=== PATIENT | female | born 1970 | race Caucasian/White ===

== ENCOUNTER 2024-01-06 04:14 | Day surgery (SDC) | payer OTHER ==
[2024-01-05 11:20] VITALS: BMI 25.1
[2024-01-06] MEDS ORDERED: KETOROLAC TROMETHAMINE 30 MG/1 ML VIAL ONE (09:29)
[2024-01-06] MEDS ORDERED: ONDANSETRON 4 MG/2 ML VIAL ONE (09:29)
[2024-01-06] MEDS ORDERED: MIDAZOLAM HCL 2 MG/2 ML SINGLE DOSE VIAL ONE (09:29)
[2024-01-06] MEDS: ceFAZolin 2 GRAM PREMIX BAG IVPB ONE (10:30)
[2024-01-06] MEDS ORDERED: ceFAZolin SODIUM 1 GM VIAL ONE (10:30)
[2024-01-06] MEDS ORDERED: ELECTROLYTE-148 SOLN 1,000 ML IV SCH (11:15)
[2024-01-06 11:18] VITALS: RESP 20
[2024-01-06 13:19] VITALS: BP 137/70; PULSE 68; TEMP 97
== END 2024-01-06 12:15 | disposition home or self-care (01) ==
LOC: JASU-SURG 04:14
PROVIDERS: ATTEND Urology
PROC: 0TF4XZZ Fragmentation in Left Kidney Pelvis, External Approach (ICD-10-PCS; principal; 2024-01-06 10:00)
DX: N20.0 Calculus of kidney (principal)
CPT/HCPCS: 81025